=== PATIENT | female | born 1990 | race African-American/Black ===

== ENCOUNTER 2020-02-25 14:25 | Observation (INO) ==
[2020-02-25] MEDS ORDERED: SODIUM CHLORIDE 0.9% 1,000 ML IV STA ×3 (15:06→19:35)
[2020-02-25] MEDS ORDERED: ONDANSETRON 4 MG/2 ML VIAL IV STA (15:06)
[2020-02-25 15:26] LABS: Basophils % 0.3 % (0.0-0.8); Hematocrit 27.8 VOL% (35.7-47.0); Immature Granulocytes % 0.3 %; Immature Granulocytes Absolute 0.04 #; Lymphocytes # 1.4 10*3/uL (1.4-4.0); Lymphocytes % 11.6 % (21.3-54.2); Mean Corpuscular HGB Conc 32.4 GM/DL (32-36); Mean Corpuscular Volume 82.7 FL (87-102); Monocytes % 4.4 % (1.7-12.7); Neutrophils % 83.4 % (38.7-73.9); Platelet Count 409 T/CUMM (130-400); Red Blood Count 3.36 MC/CUMM (3.8-5.5); Red Cell Distribution Width 12.8 % (9.3-17.3); White Blood Count 11.7 T/CUMM (4-12)
[2020-02-25 15:30] LABS: Apearance,Urine CLOUDY (Clear); Bacteria,Urine Few /HPF (Few); Bilirubin,Urine Negative (Negative); Blood, Urine Small mg/dL (Negative); Glucose,Urine (UA) >=500 mg/dL (Negative); Ketones,Urine 5 mg/dL (Negative); Mucus,Urine Few /LPF (Occasional); Nitrite,Urine Negative (Negative); Protein,Urine >=500 MG/DL; RBC,Urine 2 /HPF (0-4); Urine Color Yellow (Yellow); Urine Specific Gravity 1.014 (1.001-1.035); Urine Urobilinogen < 2.0 EU/DL (0.2-1.0); WBC,Urine 5 /HPF (0-6)
[2020-02-25 15:46] LABS: Albumin 2.9 G/DL (3.4-5.0); Bilirubin,Total 0.6 MG/DL (0.2-1.0); Calcium 9.5 MG/DL (8.5-10.1); Osmolality,Calculated 292.1 MOS/KG (273-304); Total Protein 7.5 G/DL (6.4-8.3)
[2020-02-25] MEDS ORDERED: LABETALOL 20 MG/4 ML SYRINGE IV STA (16:24)
[2020-02-25] MEDS ORDERED: LABETALOL 100 MG/20 ML VIAL IV STA (17:12)
[2020-02-25] MEDS ORDERED: MYLANTA/LIDO VISC 2:1 300 ML BOTTLE SWISH/SWAL ONE ×2 (17:18→23:00)
[2020-02-25] MEDS ORDERED: MAGNESIUM HYDROXIDE SUSP 30 ML UDCUP PO PRN (19:35)
[2020-02-25] MEDS ORDERED: SODIUM CHLORIDE 0.9% 1,000 ML IV SCH (19:35)
[2020-02-25] MEDS ORDERED: ACETAMINOPHEN 325 MG TABLET PO PRN (19:35)
[2020-02-25] MEDS ORDERED: GLUCAGON 1 MG VIAL IM PRN (19:35)
[2020-02-25] MEDS ORDERED: BISACODYL 10 MG SUPP RECTAL PRN (19:35)
[2020-02-25] MEDS ORDERED: DEXTROSE 10% 250 ML BAG IV PRN (19:35)
[2020-02-25] MEDS ORDERED: ONDANSETRON 4 MG/2 ML VIAL IV PRN (19:35)
[2020-02-25] MEDS ORDERED: hydrALAZINE 20 MG/1 ML VIAL IV ONE ×2 (20:06→20:33)
[2020-02-25] MEDS ORDERED: PROMETHAZINE 25 MG/1 ML VIAL IM ONE (20:07)
[2020-02-25] MEDS: SCOPOLAMINE 1.5 MG PATCH TRANSDERM SCH (20:31)
[2020-02-25] MEDS: INSULIN REGULAR 100 UNIT/ML SUBCUT SCH (20:32)
[2020-02-25] MEDS ORDERED: LABETALOL 200 MG TABLET PO SCH (21:00)
[2020-02-25] MEDS: SODIUM CHLORIDE 0.9% 1,000 ML IV SCH (21:50)
[2020-02-25] MEDS: DOCUSATE SODIUM 100 MG CAPSULE PO SCH (22:27)
[2020-02-26] MEDS: SODIUM CHLORIDE 0.9% 1,000 ML IV SCH ×2 (04:20→13:45)
[2020-02-26] MEDS: INSULIN REGULAR 100 UNIT/ML SUBCUT SCH ×5 (07:00→21:06)
[2020-02-26] MEDS: LABETALOL 100 MG TABLET PO SCH ×2 (08:30→20:59)
[2020-02-26] MEDS: ceFAZolin 2,000 MG in PREMIX 1 EACH IV SCH ×2 (09:35→17:00)
[2020-02-26] MEDS: DOCUSATE SODIUM 100 MG CAPSULE PO SCH ×2 (09:37→20:59)
[2020-02-26] MEDS ORDERED: PROMETHAZINE 25 MG/1 ML VIAL IM PRN (14:34)
[2020-02-26] MEDS: ACETAMINOPHEN/CODEINE 300-30 MG TABLET PO PRN (14:47)
[2020-02-26] MEDS: LACTATED RINGERS 1,000 ML IV SCH (18:00)
[2020-02-26 18:48] LABS: Hepatitis B Core IgM Quant 0.08 Index; Hepatitis B Surface Ag Quant 0.18 Index; Hepatitis B Surface Ag Result Negative (Negative); Hepatitis C Virus Ab Quant 0.09 Index; Hepatitis C Virus Ab Result Negative (Negative)
[2020-02-27] MEDS: ceFAZolin 2,000 MG in PREMIX 1 EACH IV SCH ×3 (01:05→17:15)
[2020-02-27] MEDS: LACTATED RINGERS 1,000 ML IV SCH ×3 (02:26→21:40)
[2020-02-27] MEDS: INSULIN REGULAR 100 UNIT/ML SUBCUT SCH ×4 (08:00→21:30)
[2020-02-27] MEDS ORDERED: PROMETHAZINE 25 MG/1 ML VIAL IM PRN (08:25)
[2020-02-27] MEDS: PANTOPRAZOLE 40 MG VIAL IV SCH ×2 (08:25→21:19)
[2020-02-27] MEDS ORDERED: PROMETHAZINE 25 MG/1 ML VIAL ONE (08:28)
[2020-02-27] MEDS: LABETALOL 100 MG TABLET PO SCH ×2 (09:00→21:19)
[2020-02-27] MEDS: DOCUSATE SODIUM 100 MG CAPSULE PO SCH ×2 (09:00→21:19)
[2020-02-27] MEDS: METOCLOPRAMIDE 10 MG/2 ML VIAL IV SCH ×2 (12:05→17:45)
[2020-02-27] MEDS: ACETAMINOPHEN/CODEINE 300-30 MG TABLET PO PRN (17:15)
[2020-02-28] MEDS: METOCLOPRAMIDE 10 MG/2 ML VIAL IV SCH ×2 (00:40→05:50)
[2020-02-28] MEDS: ceFAZolin 2,000 MG in PREMIX 1 EACH IV SCH ×3 (01:32→17:29)
[2020-02-28] MEDS: LACTATED RINGERS 1,000 ML IV SCH ×3 (04:59→22:16)
[2020-02-28] MEDS: METOCLOPRAMIDE 10 MG/10 ML UDCUP PO SCH ×4 (08:00→22:16)
[2020-02-28] MEDS: SCOPOLAMINE 1.5 MG PATCH TRANSDERM SCH (08:00)
[2020-02-28] MEDS: LABETALOL 100 MG TABLET PO SCH ×2 (08:00→20:27)
[2020-02-28] MEDS: PANTOPRAZOLE 40 MG TABLET PO SCH ×2 (08:00→20:26)
[2020-02-28] MEDS: DOCUSATE SODIUM 100 MG CAPSULE PO SCH ×3 (08:00→20:32)
[2020-02-28] MEDS: INSULIN REGULAR 100 UNIT/ML SUBCUT SCH ×4 (10:13→20:38)
[2020-02-28] MEDS: ACETAMINOPHEN/CODEINE 300-30 MG TABLET PO PRN (20:27)
[2020-02-29] MEDS: ceFAZolin 2,000 MG in PREMIX 1 EACH IV SCH ×2 (00:02→08:32)
[2020-02-29] MEDS: LACTATED RINGERS 1,000 ML IV SCH (06:10)
[2020-02-29] MEDS ORDERED: PANTOPRAZOLE 40 MG TABLET PO SCH (08:00)
[2020-02-29] MEDS: METOCLOPRAMIDE 10 MG/10 ML UDCUP PO SCH ×2 (08:10→11:35)
[2020-02-29] MEDS: LABETALOL 100 MG TABLET PO SCH (08:10)
[2020-02-29] MEDS: DOCUSATE SODIUM 100 MG CAPSULE PO SCH (08:10)
[2020-02-29] MEDS: INSULIN REGULAR 100 UNIT/ML SUBCUT SCH ×2 (08:31→13:12)
[2020-02-29 11:25] VITALS: BP 161/98
[2020-02-29] MEDS: ACETAMINOPHEN/CODEINE 300-30 MG TABLET PO PRN (12:55)
== END 2020-02-29 14:35 | disposition home or self-care (01) ==
LOC: N.EDINP 14:25 → N.ED 14:25 → N.EDINP 19:00 → N.OB 19:25
PROVIDERS: ADMIT Obstetrics & Gynecology; ATTEND Obstetrics & Gynecology

== ENCOUNTER 2020-04-02 11:22 | Observation (INO) ==
[2020-04-02] MEDS ORDERED: SCOPOLAMINE 1.5 MG PATCH TRANSDERM ONE (12:39)
[2020-04-02] MEDS ORDERED: DEXTROSE 10% 250 ML BAG IV PRN ×2 (12:41→16:05)
[2020-04-02] MEDS ORDERED: GLUCAGON 1 MG VIAL IM PRN ×3 (12:41→19:05)
[2020-04-02] MEDS: LACTATED RINGERS 1,000 ML IV SCH ×2 (12:45→18:38)
[2020-04-02] MEDS: ONDANSETRON 4 MG/2 ML VIAL IV SCH ×2 (12:55→18:35)
[2020-04-02 13:52] LABS: Basophils % 0.5 % (0.0-0.8); Eosinophils % 0.7 % (0.00-10.9); Hematocrit 23.3 VOL% (35.7-47.0); Hemoglobin 7.3 GM/DL (12.0-16.0); Immature Granulocytes % 0.4 %; Immature Granulocytes Absolute 0.02 #; Lymphocytes # 1.3 10*3/uL (1.4-4.0); Lymphocytes % 22.1 % (21.3-54.2); Mean Corpuscular HGB Conc 31.3 GM/DL (32-36); Mean Corpuscular Volume 86.6 FL (87-102); Mean Platelet Volume 8.8 FL (9.6-12.0); Monocytes % 5.1 % (1.7-12.7); Neutrophils % 71.2 % (38.7-73.9); Platelet Count 339 T/CUMM (130-400); Red Blood Count 2.69 MC/CUMM (3.8-5.5); White Blood Count 5.7 T/CUMM (4-12)
[2020-04-02] MEDS: METOCLOPRAMIDE 10 MG/2 ML VIAL IV SCH ×2 (13:57→21:58)
[2020-04-02 14:18] LABS: Albumin 2.4 G/DL (3.4-5.0); Bilirubin,Total 0.4 MG/DL (0.2-1.0); Calcium 8.4 MG/DL (8.5-10.1); Osmolality,Calculated 275.4 MOS/KG (273-304); Total Protein 6.5 G/DL (6.4-8.3)
[2020-04-02] MEDS ORDERED: DEXTROSE 50% 25 GM/50 ML VIAL IV PRN ×2 (15:56→19:05)
[2020-04-02] MEDS: INSULIN REGULAR 100 UNIT/ML SUBCUT SCH ×2 (17:00→21:02)
[2020-04-02] MEDS ORDERED: INSULIN REGULAR 100 UNIT/ML SUBCUT SCH (18:00)
[2020-04-02] MEDS ORDERED: ALUMINUM/MAGNES/SIMETH MAX STR 30 ML UDCUP PO PRN (18:19)
[2020-04-02 18:43] LABS: Apearance,Urine CLOUDY (Clear); Bilirubin,Urine Negative (Negative); Blood, Urine Large mg/dL (Negative); Glucose,Urine (UA) >=500 mg/dL (Negative); Ketones,Urine Negative (Negative); Mucus,Urine Occasional /LPF (Occasional); Nitrite,Urine Negative (Negative); Protein,Urine 100 MG/DL; RBC,Urine 1103 /HPF (0-4); Squamous Epithelial Cell,Urine Occasional /HPF (0-10); Urine Color Red (Yellow); Urine Urobilinogen < 2.0 EU/DL (0.2-1.0); WBC,Urine 128 /HPF (0-6)
[2020-04-02] MEDS: AMPICILLIN INJ 1,000 MG in SODIUM CHLORIDE 0.9% 100 ML IV SCH (19:04)
[2020-04-02] MEDS: LABETALOL 100 MG TABLET PO SCH (20:11)
[2020-04-03] MEDS: ONDANSETRON 4 MG/2 ML VIAL IV SCH ×4 (00:30→19:00)
[2020-04-03] MEDS: LACTATED RINGERS 1,000 ML IV SCH ×2 (01:50→19:00)
[2020-04-03] MEDS: AMPICILLIN INJ 1,000 MG in SODIUM CHLORIDE 0.9% 100 ML IV SCH ×3 (03:01→19:05)
[2020-04-03] MEDS: METOCLOPRAMIDE 10 MG/2 ML VIAL IV SCH ×3 (06:28→21:06)
[2020-04-03 07:29] LABS: Basophils % 0.6 % (0.0-0.8); Eosinophils # 0.3 10*3/uL (0.0-0.87); Eosinophils % 4.8 % (0.00-10.9); Hematocrit 19.6 VOL% (35.7-47.0); Immature Granulocytes % 0.3 %; Immature Granulocytes Absolute 0.02 #; Lymphocytes # 2.5 10*3/uL (1.4-4.0); Lymphocytes % 38.6 % (21.3-54.2); Mean Corpuscular HGB Conc 32.1 GM/DL (32-36); Neutrophils % 49.7 % (38.7-73.9); Platelet Count 306 T/CUMM (130-400); Red Blood Count 2.28 MC/CUMM (3.8-5.5); Red Cell Distribution Width 13.9 % (9.3-17.3); White Blood Count 6.5 T/CUMM (4-12)
[2020-04-03 07:31] LABS: Hemoglobin 6.3 GM/DL (12.0-16.0)
[2020-04-03] MEDS ORDERED: SODIUM CHLORIDE 0.9% 1,000 ML IV PRN (08:08)
[2020-04-03] MEDS: INSULIN REGULAR 100 UNIT/ML SUBCUT SCH ×4 (08:13→20:58)
[2020-04-03] MEDS: LABETALOL 100 MG TABLET PO SCH (09:30)
[2020-04-03] MEDS: LABETALOL 200 MG TABLET PO SCH (20:49)
[2020-04-04] MEDS: hydrALAZINE 20 MG/1 ML VIAL IV PRN ×2 (00:39→08:10)
[2020-04-04] MEDS: ONDANSETRON 4 MG/2 ML VIAL IV SCH ×3 (00:50→14:00)
[2020-04-04] MEDS: PANTOPRAZOLE 40 MG VIAL IV SCH ×3 (01:35→21:25)
[2020-04-04] MEDS: AMPICILLIN INJ 1,000 MG in SODIUM CHLORIDE 0.9% 100 ML IV SCH ×2 (03:37→11:00)
[2020-04-04] MEDS: LACTATED RINGERS 1,000 ML IV SCH (05:30)
[2020-04-04] MEDS: METOCLOPRAMIDE 10 MG/2 ML VIAL IV SCH (06:10)
[2020-04-04 07:06] LABS: Hematocrit 29.1 VOL% (35.7-47.0); Hemoglobin 9.7 GM/DL (12.0-16.0)
[2020-04-04] MEDS: INSULIN REGULAR 100 UNIT/ML SUBCUT SCH ×4 (08:15→21:34)
[2020-04-04] MEDS: LABETALOL 200 MG TABLET PO SCH ×2 (09:30→21:24)
[2020-04-04] MEDS ORDERED: LEVOFLOXACIN INJ 500 MG in PREMIX 1 EACH IV ONE (11:32)
[2020-04-04] MEDS ORDERED: BENZOCAINE/MENTHOL LOZENGE 18/BOX PO PRN (14:13)
[2020-04-04] MEDS ORDERED: ONDANSETRON 4 MG/2 ML VIAL IV PRN (18:43)
[2020-04-04] MEDS ORDERED: SULFAMETHOX/TRIMETHOPRIM 800-160 MG TABLET PO SCH (21:00)
[2020-04-04] MEDS ORDERED: INSULIN GLARGINE 100 UNIT/ML SUBCUT SCH (21:00)
[2020-04-05] MEDS: INSULIN GLARGINE 100 UNIT/ML SUBCUT SCH ×2 (08:15→09:43)
[2020-04-05] MEDS: INSULIN REGULAR 100 UNIT/ML SUBCUT SCH ×4 (08:51→21:17)
[2020-04-05] MEDS: SULFAMETHOX/TRIMETHOPRIM 800-160 MG TABLET PO SCH ×2 (09:00→21:10)
[2020-04-05] MEDS: LABETALOL 200 MG TABLET PO SCH ×2 (09:00→21:10)
[2020-04-05] MEDS: PANTOPRAZOLE 40 MG VIAL IV SCH ×2 (09:00→22:30)
[2020-04-05 12:57] LABS: Albumin 2.1 G/DL (3.4-5.0); Bilirubin,Total 1.1 MG/DL (0.2-1.0); Osmolality,Calculated 266.7 MOS/KG (273-304); Total Protein 6.5 G/DL (6.4-8.3)
[2020-04-05] MEDS ORDERED: SCOPOLAMINE 1.5 MG PATCH TRANSDERM SCH (13:41)
[2020-04-05 15:10] LABS: Total Protein 24 Hr Ur Result 1334 MG/24HR (0-149.1); Total Volume,Urine 575 ML (400-2000)
[2020-04-05 15:16] LABS: Creatinine Clearance Urine 23.31 ML/MIN (70-115)
[2020-04-05] MEDS ORDERED: INSULIN GLARGINE 100 UNIT/ML SUBCUT SCH (21:00)
[2020-04-06] MEDS: INSULIN REGULAR 100 UNIT/ML SUBCUT SCH ×2 (07:30→12:22)
[2020-04-06] MEDS: SULFAMETHOX/TRIMETHOPRIM 800-160 MG TABLET PO SCH (09:20)
[2020-04-06] MEDS: LABETALOL 200 MG TABLET PO SCH (09:20)
[2020-04-06] MEDS: INSULIN GLARGINE 100 UNIT/ML SUBCUT SCH ×2 (09:24→11:35)
[2020-04-06] MEDS: PANTOPRAZOLE 40 MG VIAL IV SCH (09:28)
[2020-04-06 12:02] VITALS: BP 137/81
== END 2020-04-06 13:15 | disposition home or self-care (01) ==
LOC: N.OB
PROVIDERS: ADMIT Obstetrics & Gynecology; ATTEND Obstetrics & Gynecology

== ENCOUNTER 2022-05-24 17:59 | Inpatient (IN) ==
[2022-05-24] MEDS ORDERED: ACETAMINOPHEN 325 MG TABLET PO PRN (20:43)
[2022-05-24] MEDS ORDERED: ONDANSETRON 4 MG/2 ML VIAL IV PRN (20:43)
[2022-05-24 20:57] LABS: Basophils % 0.3 % (0.0-0.8); Eosinophils # 0.1 10*3/uL (0.0-0.87); Eosinophils % 0.3 % (0.00-10.9); Hematocrit 30.4 VOL% (35.7-47.0); Hemoglobin 9.7 GM/DL (12.0-16.0); Immature Granulocytes % 0.8 %; Immature Granulocytes Absolute 0.12 #; Lymphocytes # 0.8 10*3/uL (1.4-4.0); Lymphocytes % 5.6 % (21.3-54.2); Mean Corpuscular HGB Conc 31.9 GM/DL (32-36); Mean Corpuscular Volume 81.7 FL (87-102); Mean Platelet Volume 10.9 FL (9.6-12.0); Monocytes # 0.4 10*3/uL (0.11-0.8); Monocytes % 2.6 % (1.7-12.7); NRBC # 0.03 10*3/uL; Neutrophils % 90.4 % (38.7-73.9); Platelet Count 145 T/CUMM (130-400); Red Blood Count 3.72 MC/CUMM (3.8-5.5); Red Cell Distribution Width 17.6 % (9.3-17.3); White Blood Count 14.6 T/CUMM (4-12)
[2022-05-24 21:22] LABS: Albumin 1.7 G/DL (3.4-5.0); Bilirubin,Total 0.8 MG/DL (0.20-1.00); Calcium 7.2 MG/DL (8.5-10.1); Osmolality,Calculated 275.8 MOS/KG (273-304); Potassium 3.6 MMOL/L (3.5-5.1); Total Protein 5.8 G/DL (6.4-8.2)
[2022-05-24 21:23] LABS: Band Neutrophils 19 % (0-10); Lymphocytes 9 % (20-55); Platelet Estimate Adequate; Total Cells Counted 100
[2022-05-24 21:24] LABS: Hypochromia 1+; Target Cells 1+
[2022-05-25] MEDS: PIPERACILLIN/TAZOBACTAM 3,375 MG in SODIUM CHLORIDE 0.9% 100 ML IV SCH ×4 (02:18→17:04)
[2022-05-25 05:10] LABS: Basophils % 0.2 % (0.0-0.8); Eosinophils % 0.1 % (0.00-10.9); Hematocrit 25.3 VOL% (35.7-47.0); Hemoglobin 8.2 GM/DL (12.0-16.0); Immature Granulocytes Absolute 0.12 #; Lymphocytes # 0.9 10*3/uL (1.4-4.0); Lymphocytes % 6.8 % (21.3-54.2); Mean Corpuscular HGB Conc 32.4 GM/DL (32-36); Mean Corpuscular Volume 81.1 FL (87-102); Monocytes # 0.4 10*3/uL (0.11-0.8); Monocytes % 3.5 % (1.7-12.7); NRBC # 0.03 10*3/uL; Neutrophils % 88.4 % (38.7-73.9); Platelet Count 105 T/CUMM (130-400); Red Blood Count 3.12 MC/CUMM (3.8-5.5); Red Cell Distribution Width 17.4 % (9.3-17.3); White Blood Count 12.6 T/CUMM (4-12)
[2022-05-25 05:19] LABS: Calcium 7.8 MG/DL (8.5-10.1); Osmolality,Calculated 276.2 MOS/KG (273-304); Potassium 3.1 MMOL/L (3.5-5.1)
[2022-05-25 05:33] LABS: Band Neutrophils 4 % (0-10); Eosinophils 2 % (0-10); Hypochromia 1+; Lymphocytes 3 % (20-55); Target Cells 1+; Total Cells Counted 100
[2022-05-25 05:34] LABS: Anisocytosis 1+; Polychromasia Slight
[2022-05-25 05:36] LABS: Platelet Estimate Decreased
[2022-05-25] MEDS ORDERED: GLUCAGON 1 MG VIAL IM PRN (09:44)
[2022-05-25] MEDS ORDERED: DEXTROSE 10% 250 ML BAG IV PRN (09:44)
[2022-05-25] MEDS ORDERED: POTASSIUM CHLORIDE 20 MEQ TABLET PO ONE (10:00)
[2022-05-25] MEDS: PANTOPRAZOLE 40 MG TABLET PO SCH (10:55)
[2022-05-25] MEDS: INSULIN LISPRO 100 UNIT/ML SUBCUT SCH ×3 (12:35→22:16)
[2022-05-25] MEDS: HEPARIN 5,000 UNIT/1 ML VIAL SUBCUT SCH (12:35)
[2022-05-25] MEDS ORDERED: hydrALAZINE 20 MG/1 ML VIAL IV PRN (12:42)
[2022-05-25] MEDS ORDERED: ENOXAPARIN 30 MG/0.3 ML SYRINGE SUBCUT SCH (15:00)
[2022-05-25 15:50] LABS: INR 1.2; PT Patient Result 13.3 SECS (10.5-12.0)
[2022-05-25] MEDS ORDERED: NON-FORMULARY MEDICATION (Insulin Glargine [Lantus Solostar U-100 Insulin] 100 unit/mL (3 SUBCUT SCH (21:00)
[2022-05-26] MEDS: HEPARIN 5,000 UNIT/1 ML VIAL SUBCUT SCH ×3 (01:11→23:43)
[2022-05-26] MEDS: PIPERACILLIN/TAZOBACTAM 3,375 MG in SODIUM CHLORIDE 0.9% 100 ML IV SCH ×2 (04:04→18:17)
[2022-05-26 05:25] LABS: Basophils % 0.2 % (0.0-0.8); Eosinophils % 0.2 % (0.00-10.9); Hematocrit 26.1 VOL% (35.7-47.0); Hemoglobin 8.1 GM/DL (12.0-16.0); Immature Granulocytes % 0.8 %; Lymphocytes % 7.8 % (21.3-54.2); Mean Corpuscular Volume 82.1 FL (87-102); Monocytes # 0.6 10*3/uL (0.11-0.8); Monocytes % 4.5 % (1.7-12.7); NRBC # 0.02 10*3/uL; Neutrophils % 86.5 % (38.7-73.9); Platelet Count 104 T/CUMM (130-400); Red Blood Count 3.18 MC/CUMM (3.8-5.5); Red Cell Distribution Width 17.2 % (9.3-17.3)
[2022-05-26 05:45] LABS: Calcium 7.9 MG/DL (8.5-10.1); Osmolality,Calculated 283.8 MOS/KG (273-304); Potassium 3.1 MMOL/L (3.5-5.1)
[2022-05-26 05:53] LABS: Eosinophils 1 % (0-10); Hypochromia Slight; Lymphocytes 5 % (20-55); Microcytosis Slight; Total Cells Counted 100
[2022-05-26] MEDS ORDERED: POTASSIUM CHLORIDE 20 MEQ TABLET PO ONE (07:43)
[2022-05-26] MEDS: POTASSIUM CHLORIDE RIDER 10 MEQ/100 ML PREMIX IV SCH ×2 (09:57→12:19)
[2022-05-26] MEDS: PANTOPRAZOLE 40 MG TABLET PO SCH (10:14)
[2022-05-26] MEDS: INSULIN LISPRO 100 UNIT/ML SUBCUT SCH ×4 (10:14→21:52)
[2022-05-26] MEDS ORDERED: BUPIVACAINE MPF 0.25% 10 ML VIAL ONE (12:41)
[2022-05-26] MEDS ORDERED: LIDOCAINE 2% 5 ML VIAL ONE (12:42)
[2022-05-26] MEDS ORDERED: LIDOCAINE 1%/EPI INJ 20 ML VIAL ONE (12:42)
[2022-05-26] MEDS ORDERED: ONDANSETRON 4 MG/2 ML VIAL ONE (12:42)
[2022-05-26] MEDS ORDERED: propofoL 200 MG/20 ML VIAL IV ONE (12:42)
[2022-05-26] MEDS ORDERED: DEXAMETHASONE 4 MG/1 ML VIAL ONE (12:42)
[2022-05-26] MEDS ORDERED: fentaNYL 100 MCG/2 ML VIAL ONE ×2 (12:44→14:44)
[2022-05-26] MEDS ORDERED: MIDAZOLAM 2 MG/2 ML VIAL ONE (12:45)
[2022-05-26] MEDS ORDERED: SODIUM CHLORIDE 0.9% 500 ML IV SCH (13:00)
[2022-05-26] MEDS ORDERED: SEVOFLURANE 1 UNIT/15 MINUTE INH ONE ×4 (14:28→15:21)
[2022-05-26] MEDS ORDERED: PHENYLEPHRINE 1 MG/10 ML SYRINGE IV ONE (14:28)
[2022-05-26] MEDS ORDERED: HYDROmorphone 1 MG/1 ML SYRINGE IV PRN (15:20)
[2022-05-26] MEDS ORDERED: ONDANSETRON 4 MG/2 ML VIAL IV PRN (15:20)
[2022-05-26] MEDS ORDERED: GENTAMICIN INJ 80 MG in SODIUM CHLORIDE 0.9% 100 ML IV ONE (15:30)
[2022-05-26] MEDS ORDERED: NALOXONE 0.4 MG/ML VIAL ONE (15:34)
[2022-05-27] MEDS: PIPERACILLIN/TAZOBACTAM 3,375 MG in SODIUM CHLORIDE 0.9% 100 ML IV SCH ×2 (05:32→15:33)
[2022-05-27 05:54] LABS: Basophils % 0.1 % (0.0-0.8); Eosinophils % 0.1 % (0.00-10.9); Hematocrit 26.1 VOL% (35.7-47.0); Hemoglobin 8.3 GM/DL (12.0-16.0); Immature Granulocytes % 1.3 %; Immature Granulocytes Absolute 0.18 #; Lymphocytes # 1.2 10*3/uL (1.4-4.0); Lymphocytes % 8.7 % (21.3-54.2); Mean Corpuscular HGB Conc 31.8 GM/DL (32-36); Mean Corpuscular Volume 81.8 FL (87-102); Mean Platelet Volume 11.5 FL (9.6-12.0); Monocytes # 0.7 10*3/uL (0.11-0.8); Monocytes % 5.3 % (1.7-12.7); Neutrophils % 84.5 % (38.7-73.9); Platelet Count 110 T/CUMM (130-400); Red Blood Count 3.19 MC/CUMM (3.8-5.5); Red Cell Distribution Width 17.9 % (9.3-17.3); White Blood Count 13.9 T/CUMM (4-12)
[2022-05-27 06:13] LABS: Calcium 8.2 MG/DL (8.5-10.1); Osmolality,Calculated 283.7 MOS/KG (273-304); Potassium 3.6 MMOL/L (3.5-5.1)
[2022-05-27] MEDS: PANTOPRAZOLE 40 MG TABLET PO SCH (08:49)
[2022-05-27] MEDS: INSULIN LISPRO 100 UNIT/ML SUBCUT SCH ×4 (09:02→21:03)
[2022-05-27] MEDS ORDERED: LOPERAMIDE 2 MG CAPSULE PO PRN (10:37)
[2022-05-27] MEDS: HEPARIN 5,000 UNIT/1 ML VIAL SUBCUT SCH (11:24)
[2022-05-27] MEDS: INSULIN GLARGINE 100 UNIT/ML SUBCUT SCH (21:03)
[2022-05-28] MEDS: HEPARIN 5,000 UNIT/1 ML VIAL SUBCUT SCH ×3 (01:03→23:21)
[2022-05-28] MEDS: PIPERACILLIN/TAZOBACTAM 3,375 MG in SODIUM CHLORIDE 0.9% 100 ML IV SCH ×2 (04:34→17:19)
[2022-05-28 06:14] LABS: Basophils % 0.3 % (0.0-0.8); Eosinophils # 0.1 10*3/uL (0.0-0.87); Eosinophils % 0.8 % (0.00-10.9); Hematocrit 23.6 VOL% (35.7-47.0); Hemoglobin 7.4 GM/DL (12.0-16.0); Immature Granulocytes % 0.9 %; Immature Granulocytes Absolute 0.09 #; Lymphocytes # 1.5 10*3/uL (1.4-4.0); Mean Corpuscular HGB Conc 31.4 GM/DL (32-36); Mean Corpuscular Volume 80.8 FL (87-102); Mean Platelet Volume 12.9 FL (9.6-12.0); Monocytes # 0.6 10*3/uL (0.11-0.8); Monocytes % 5.9 % (1.7-12.7); NRBC # 0.02 10*3/uL; Neutrophils % 76.1 % (38.7-73.9); Platelet Count 137 T/CUMM (130-400); Red Blood Count 2.92 MC/CUMM (3.8-5.5); Red Cell Distribution Width 17.9 % (9.3-17.3); White Blood Count 9.6 T/CUMM (4-12)
[2022-05-28 06:25] LABS: Osmolality,Calculated 283.4 MOS/KG (273-304); Potassium 3.3 MMOL/L (3.5-5.1)
[2022-05-28 09:09] LABS: Eosinophils 1 % (0-10); Lymphocytes 12 % (20-55); Nucleated Red Blood Cells 1 (0-5); Ovalocytes Slight; Polychromasia Slight; Total Cells Counted 100
[2022-05-28 09:10] LABS: Platelet Estimate Adequate; Target Cells Few
[2022-05-28] MEDS: PANTOPRAZOLE 40 MG TABLET PO SCH (09:21)
[2022-05-28] MEDS ORDERED: POTASSIUM CHLORIDE 20 MEQ TABLET PO ONE (11:12)
[2022-05-28] MEDS: INSULIN LISPRO 100 UNIT/ML SUBCUT SCH ×4 (11:17→21:17)
[2022-05-28] MEDS: SODIUM HYPOCHLORITE 0.25% IRRIG 473 ML BOTTLE TOP SCH (12:07)
[2022-05-28] MEDS: INSULIN GLARGINE 100 UNIT/ML SUBCUT SCH (21:18)
[2022-05-29] MEDS: PIPERACILLIN/TAZOBACTAM 3,375 MG in SODIUM CHLORIDE 0.9% 100 ML IV SCH ×2 (03:40→16:25)
[2022-05-29 05:42] LABS: Basophils # 0.1 10*3/uL (0.0-0.2); Basophils % 0.6 % (0.0-0.8); Eosinophils # 0.1 10*3/uL (0.0-0.87); Eosinophils % 1.4 % (0.00-10.9); Hematocrit 26.8 VOL% (35.7-47.0); Hemoglobin 8.3 GM/DL (12.0-16.0); Immature Granulocytes Absolute 0.08 #; Lymphocytes # 0.9 10*3/uL (1.4-4.0); Lymphocytes % 11.3 % (21.3-54.2); Mean Corpuscular Volume 82.2 FL (87-102); Mean Platelet Volume 11.4 FL (9.6-12.0); Monocytes # 0.5 10*3/uL (0.11-0.8); Monocytes % 6.1 % (1.7-12.7); NRBC # 0.02 10*3/uL; Neutrophils % 79.6 % (38.7-73.9); Platelet Count 153 T/CUMM (130-400); Red Blood Count 3.26 MC/CUMM (3.8-5.5); Red Cell Distribution Width 18.3 % (9.3-17.3); White Blood Count 8.1 T/CUMM (4-12)
[2022-05-29 05:57] LABS: Calcium 7.8 MG/DL (8.5-10.1); Osmolality,Calculated 287.4 MOS/KG (273-304); Potassium 3.1 MMOL/L (3.5-5.1)
[2022-05-29 06:57] LABS: Eosinophils 3 % (0-10); Lymphocytes 8 % (20-55); Platelet Estimate Normal; Total Cells Counted 100
[2022-05-29] MEDS ORDERED: POTASSIUM CHLORIDE 20 MEQ TABLET PO ONE (07:48)
[2022-05-29] MEDS: INSULIN LISPRO 100 UNIT/ML SUBCUT SCH ×4 (08:54→21:06)
[2022-05-29] MEDS: PANTOPRAZOLE 40 MG TABLET PO SCH (08:56)
[2022-05-29] MEDS: SODIUM HYPOCHLORITE 0.25% IRRIG 473 ML BOTTLE TOP SCH (12:05)
[2022-05-29] MEDS: HEPARIN 5,000 UNIT/1 ML VIAL SUBCUT SCH (13:55)
[2022-05-29] MEDS: INSULIN GLARGINE 100 UNIT/ML SUBCUT SCH (21:07)
[2022-05-30] MEDS: HEPARIN 5,000 UNIT/1 ML VIAL SUBCUT SCH ×2 (01:07→15:58)
[2022-05-30] MEDS: PIPERACILLIN/TAZOBACTAM 3,375 MG in SODIUM CHLORIDE 0.9% 100 ML IV SCH (03:37)
[2022-05-30 05:05] LABS: Basophils # 0.1 10*3/uL (0.0-0.2); Basophils % 0.9 % (0.0-0.8); Eosinophils # 0.2 10*3/uL (0.0-0.87); Eosinophils % 2.2 % (0.00-10.9); Hematocrit 25.3 VOL% (35.7-47.0); Hemoglobin 7.8 GM/DL (12.0-16.0); Immature Granulocytes % 0.9 %; Immature Granulocytes Absolute 0.07 #; Lymphocytes # 1.2 10*3/uL (1.4-4.0); Lymphocytes % 15.3 % (21.3-54.2); Mean Corpuscular HGB Conc 30.8 GM/DL (32-36); Mean Corpuscular Volume 81.9 FL (87-102); Mean Platelet Volume 10.9 FL (9.6-12.0); Monocytes # 0.6 10*3/uL (0.11-0.8); Monocytes % 7.4 % (1.7-12.7); Neutrophils % 73.3 % (38.7-73.9); Platelet Count 160 T/CUMM (130-400); Red Blood Count 3.09 MC/CUMM (3.8-5.5); Red Cell Distribution Width 18.6 % (9.3-17.3); White Blood Count 7.8 T/CUMM (4-12)
[2022-05-30 05:23] LABS: Calcium 8.1 MG/DL (8.5-10.1); Osmolality,Calculated 288.4 MOS/KG (273-304); Potassium 3.3 MMOL/L (3.5-5.1)
[2022-05-30] MEDS ORDERED: CLINDAMYCIN INJ 900 MG/50 ML PREMIX IV ONE (06:00)
[2022-05-30] MEDS: INSULIN LISPRO 100 UNIT/ML SUBCUT SCH ×4 (09:26→21:16)
[2022-05-30] MEDS: PANTOPRAZOLE 40 MG TABLET PO SCH (10:01)
[2022-05-30] MEDS ORDERED: SODIUM CHLORIDE 0.9% 250 ML IV SCH (10:30)
[2022-05-30] MEDS ORDERED: BUPIVACAINE MPF 0.25% 10 ML VIAL ONE (10:53)
[2022-05-30] MEDS ORDERED: TISSUE ADHESIVE 1 EACH APPLICATOR TOP ONE (10:53)
[2022-05-30] MEDS ORDERED: LIDOCAINE 1%/EPI INJ 20 ML VIAL ONE (10:53)
[2022-05-30] MEDS ORDERED: LIDOCAINE 2% 5 ML VIAL ONE (10:55)
[2022-05-30] MEDS ORDERED: ETOMIDATE 40 MG/20 ML VIAL IV ONE (10:55)
[2022-05-30] MEDS ORDERED: DEXAMETHASONE 4 MG/1 ML VIAL ONE (10:55)
[2022-05-30] MEDS ORDERED: SEVOFLURANE 1 UNIT/15 MINUTE INH ONE (10:55)
[2022-05-30] MEDS ORDERED: ONDANSETRON 4 MG/2 ML VIAL ONE (10:55)
[2022-05-30] MEDS ORDERED: propofoL 200 MG/20 ML VIAL IV ONE (10:55)
[2022-05-30] MEDS ORDERED: MIDAZOLAM 2 MG/2 ML VIAL ONE (11:26)
[2022-05-30] MEDS ORDERED: fentaNYL 100 MCG/2 ML VIAL ONE (11:26)
[2022-05-30] MEDS ORDERED: KETAMINE 500 MG/10 ML VIAL ONE (11:43)
[2022-05-30] MEDS ORDERED: GENTAMICIN INJ 80 MG/50 ML PREMIX IV PRN (13:56)
[2022-05-30] MEDS ORDERED: HEPARIN 10,000 UNIT/10 ML VIAL IV PRN (13:58)
[2022-05-30] MEDS ORDERED: cefTRIAXone 1,000 MG in SODIUM CHLORIDE 0.9% 100 ML IV SCH (14:00)
[2022-05-30] MEDS ORDERED: GENTAMICIN INJ 80 MG/50 ML PREMIX IV SCH (15:00)
[2022-05-30] MEDS: SODIUM HYPOCHLORITE 0.25% IRRIG 473 ML BOTTLE TOP SCH (17:53)
[2022-05-30] MEDS: INSULIN GLARGINE 100 UNIT/ML SUBCUT SCH (21:17)
[2022-05-31] MEDS: HEPARIN 5,000 UNIT/1 ML VIAL SUBCUT SCH ×2 (00:06→12:57)
[2022-05-31 05:24] LABS: Basophils % 0.3 % (0.0-0.8); Eosinophils # 0.1 10*3/uL (0.0-0.87); Eosinophils % 0.6 % (0.00-10.9); Hematocrit 24.1 VOL% (35.7-47.0); Hemoglobin 7.4 GM/DL (12.0-16.0); Immature Granulocytes % 0.9 %; Immature Granulocytes Absolute 0.08 #; Lymphocytes # 0.9 10*3/uL (1.4-4.0); Lymphocytes % 9.3 % (21.3-54.2); Mean Corpuscular HGB Conc 30.7 GM/DL (32-36); Mean Corpuscular Volume 83.1 FL (87-102); Mean Platelet Volume 10.7 FL (9.6-12.0); Monocytes # 0.5 10*3/uL (0.11-0.8); Monocytes % 5.4 % (1.7-12.7); Neutrophils % 83.5 % (38.7-73.9); Platelet Count 133 T/CUMM (130-400); White Blood Count 9.4 T/CUMM (4-12)
[2022-05-31 05:52] LABS: Calcium 8.1 MG/DL (8.5-10.1); Osmolality,Calculated 278.5 MOS/KG (273-304); Potassium 3.3 MMOL/L (3.5-5.1)
[2022-05-31] MEDS: PANTOPRAZOLE 40 MG TABLET PO SCH (08:32)
[2022-05-31] MEDS: SODIUM HYPOCHLORITE 0.25% IRRIG 473 ML BOTTLE TOP SCH ×2 (10:45→11:02)
[2022-05-31] MEDS: INSULIN LISPRO 100 UNIT/ML SUBCUT SCH ×4 (11:25→22:40)
[2022-05-31] MEDS ORDERED: POTASSIUM CHLORIDE 20 MEQ TABLET PO ONE (14:30)
[2022-05-31] MEDS: INSULIN GLARGINE 100 UNIT/ML SUBCUT SCH (22:40)
[2022-06-01] MEDS: HEPARIN 5,000 UNIT/1 ML VIAL SUBCUT SCH ×2 (01:43→13:52)
[2022-06-01 06:11] LABS: Basophils % 0.4 % (0.0-0.8); Eosinophils # 0.1 10*3/uL (0.0-0.87); Eosinophils % 0.7 % (0.00-10.9); Hematocrit 25.7 VOL% (35.7-47.0); Hemoglobin 7.8 GM/DL (12.0-16.0); Immature Granulocytes % 1.1 %; Immature Granulocytes Absolute 0.08 #; Lymphocytes % 13.6 % (21.3-54.2); Mean Corpuscular HGB Conc 30.4 GM/DL (32-36); Mean Corpuscular Volume 84.5 FL (87-102); Mean Platelet Volume 10.6 FL (9.6-12.0); Monocytes # 0.5 10*3/uL (0.11-0.8); Monocytes % 6.8 % (1.7-12.7); Neutrophils % 77.4 % (38.7-73.9); Platelet Count 141 T/CUMM (130-400); Red Blood Count 3.04 MC/CUMM (3.8-5.5); Red Cell Distribution Width 19.7 % (9.3-17.3); White Blood Count 7.3 T/CUMM (4-12)
[2022-06-01 06:27] LABS: Calcium 7.8 MG/DL (8.5-10.1); Osmolality,Calculated 285.1 MOS/KG (273-304); Potassium 3.6 MMOL/L (3.5-5.1)
[2022-06-01 06:28] LABS: Calcium 7.8 MG/DL (8.5-10.1); Osmolality,Calculated 286.1 MOS/KG (273-304); Potassium 3.7 MMOL/L (3.5-5.1)
[2022-06-01 07:54] VITALS: BP 147/96
[2022-06-01] MEDS: INSULIN LISPRO 100 UNIT/ML SUBCUT SCH ×2 (08:00→13:52)
[2022-06-01] MEDS: SODIUM HYPOCHLORITE 0.25% IRRIG 473 ML BOTTLE TOP SCH (10:15)
[2022-06-01] MEDS: PANTOPRAZOLE 40 MG TABLET PO SCH (10:15)
== END 2022-06-01 14:30 | disposition home health service (06) | DRG 907 ==
LOC: EDBD → EDUNIT# → N.ED 17:59 → N.EDINP 17:59 → N.3E 22:28 → SUATTDRO 05-27 13:07
PROVIDERS: ADMIT Surgery; ATTEND Internal Medicine
PROC: VAVDCFI (2022-05-26 14:16)

== ENCOUNTER 2022-07-28 07:05 | Observation (INO) ==
[2022-07-28 07:51] LABS: Calcium 8.7 MG/DL (8.5-10.1); Osmolality,Calculated 292.8 MOS/KG (273-304); Potassium 3.8 MMOL/L (3.5-5.1)
[2022-07-28 07:52] LABS: Basophils # 0.1 10*3/uL (0.0-0.2); Basophils % 0.7 % (0.0-0.8); Eosinophils # 0.2 10*3/uL (0.0-0.87); Eosinophils % 2.6 % (0.00-10.9); Hematocrit 36.9 VOL% (35.7-47.0); Immature Granulocytes % 0.7 %; Immature Granulocytes Absolute 0.05 #; Lymphocytes # 1.3 10*3/uL (1.4-4.0); Lymphocytes % 17.3 % (21.3-54.2); Mean Corpuscular HGB Conc 29.8 GM/DL (32-36); Mean Corpuscular Volume 95.1 FL (87-102); Mean Platelet Volume 10.4 FL (9.6-12.0); Monocytes # 0.3 10*3/uL (0.11-0.8); Monocytes % 4.4 % (1.7-12.7); NRBC # 0.03 10*3/uL; Neutrophils % 74.3 % (38.7-73.9); Platelet Count 204 T/CUMM (130-400); Red Blood Count 3.88 MC/CUMM (3.8-5.5); Red Cell Distribution Width 20.8 % (9.3-17.3); White Blood Count 7.2 T/CUMM (4-12)
[2022-07-28] MEDS ORDERED: BUPIVACAINE MPF 0.25% 10 ML VIAL ONE (08:05)
[2022-07-28] MEDS ORDERED: TISSUE ADHESIVE 1 EACH APPLICATOR TOP ONE (08:05)
[2022-07-28] MEDS ORDERED: HEPARIN 5,000 UNIT/1 ML VIAL ONE (08:05)
[2022-07-28] MEDS ORDERED: LIDOCAINE 2%/EPI 20 ML VIAL ONE (08:05)
[2022-07-28] MEDS ORDERED: FAMOTIDINE 20 MG TABLET PO ONE (08:12)
[2022-07-28] MEDS ORDERED: DIAZEPAM 5 MG TABLET PO ONE (08:12)
[2022-07-28] MEDS ORDERED: SODIUM CHLORIDE 0.9% 250 ML IV SCH (08:30)
[2022-07-28] MEDS ORDERED: DEXTROSE 10% 250 ML BAG IV PRN ×2 (10:34→10:38)
[2022-07-28] MEDS ORDERED: ACETAMINOPHEN 325 MG TABLET PO PRN ×2 (10:34→10:38)
[2022-07-28] MEDS ORDERED: ONDANSETRON 4 MG/2 ML VIAL IV PRN ×2 (10:34→10:38)
[2022-07-28] MEDS ORDERED: GLUCAGON 1 MG VIAL IM PRN ×2 (10:34→10:38)
[2022-07-28] MEDS ORDERED: hydrALAZINE 20 MG/1 ML VIAL IV PRN (10:34)
[2022-07-28] MEDS ORDERED: ALBUTEROL/IPRATROPIUM 3 ML NEB RESP TX PRN (10:38)
[2022-07-28] MEDS ORDERED: HYDROmorphone 1 MG/1 ML SYRINGE IV PRN (10:38)
[2022-07-28] MEDS ORDERED: BISACODYL 5 MG TABLET PO PRN (10:38)
[2022-07-28] MEDS ORDERED: KETOROLAC 15 MG/1 ML VIAL IV PRN (10:38)
[2022-07-28] MEDS ORDERED: INSULIN LISPRO 100 UNIT/ML SUBCUT SCH (11:30)
[2022-07-28] MEDS: INSULIN LISPRO 100 UNIT/ML SUBCUT SCH ×3 (12:37→21:31)
[2022-07-28] MEDS ORDERED: HEPARIN 10,000 UNIT/10 ML VIAL IV PRN (14:51)
[2022-07-28] MEDS ORDERED: INSULIN GLARGINE 100 UNIT/ML SUBCUT SCH (21:00)
[2022-07-29 05:15] LABS: Calcium 8.2 MG/DL (8.5-10.1); Osmolality,Calculated 289.7 MOS/KG (273-304); Potassium 3.7 MMOL/L (3.5-5.1)
[2022-07-29 05:16] LABS: Basophils # 0.1 10*3/uL (0.0-0.2); Basophils % 0.8 % (0.0-0.8); Eosinophils # 0.1 10*3/uL (0.0-0.87); Eosinophils % 1.8 % (0.00-10.9); Immature Granulocytes % 0.4 %; Immature Granulocytes Absolute 0.03 #; Lymphocytes % 12.9 % (21.3-54.2); Mean Corpuscular HGB Conc 29.5 GM/DL (32-36); Mean Corpuscular Volume 96.4 FL (87-102); Mean Platelet Volume 10.7 FL (9.6-12.0); Monocytes # 0.4 10*3/uL (0.11-0.8); NRBC # 0.04 10*3/uL; Neutrophils % 79.1 % (38.7-73.9); Platelet Count 190 T/CUMM (130-400); Red Blood Count 3.87 MC/CUMM (3.8-5.5); Red Cell Distribution Width 21.2 % (9.3-17.3); White Blood Count 7.6 T/CUMM (4-12)
[2022-07-29 05:20] LABS: Hematocrit 37.3 VOL% (35.7-47.0)
[2022-07-29] MEDS ORDERED: ONDANSETRON 4 MG/2 ML VIAL ONE (06:04)
[2022-07-29] MEDS ORDERED: fentaNYL 100 MCG/2 ML VIAL ONE (06:04)
[2022-07-29] MEDS ORDERED: BUPIVACAINE MPF 0.25% 10 ML VIAL ONE (06:17)
[2022-07-29] MEDS ORDERED: HEPARIN 5,000 UNIT/1 ML VIAL ONE (06:17)
[2022-07-29] MEDS ORDERED: LIDOCAINE 1% 5 ML VIAL ONE (06:17)
[2022-07-29] MEDS ORDERED: LIDOCAINE 2% 5 ML VIAL ONE (06:43)
[2022-07-29] MEDS ORDERED: ETOMIDATE 40 MG/20 ML VIAL IV ONE (06:43)
[2022-07-29] MEDS ORDERED: propofoL 200 MG/20 ML VIAL IV ONE (06:43)
[2022-07-29] MEDS ORDERED: MIDAZOLAM 2 MG/2 ML VIAL ONE (06:49)
[2022-07-29] MEDS ORDERED: SODIUM CHLORIDE 0.9% 250 ML IV SCH (07:00)
[2022-07-29] MEDS ORDERED: PANTOPRAZOLE 40 MG TABLET PO SCH (09:00)
[2022-07-29] MEDS ORDERED: ASPIRIN EC 81 MG TABLET PO SCH (09:00)
[2022-07-29] MEDS: INSULIN LISPRO 100 UNIT/ML SUBCUT SCH ×3 (09:33→16:52)
[2022-07-29] MEDS ORDERED: SODIUM CHLORIDE IV SCH (10:37)
[2022-07-29] MEDS ORDERED: GENTAMICIN IV SCH (10:37)
[2022-07-29] MEDS ORDERED: [UNRECOGNIZED DRUG - OTHER] IV SCH (10:37)
[2022-07-29 17:00] VITALS: BP 128/74
== END 2022-07-29 17:30 | disposition home or self-care (01) ==
LOC: N.OR 07:05 → N.SDSINP 07:06 → INTOOBSV 10:35 → N.3E 11:56
PROVIDERS: ADMIT Surgery; ATTEND Surgery
PROC: VAVDCFI (2022-07-28 13:25)